=== PATIENT | male | born 1945 | race Caucasian/White ===

== ENCOUNTER 2016-06-01 12:25 | Emergency (ER) | payer MEDICARE, OTHER ==
[2016-06-01] MEDS ORDERED: Sodium Chloride 0.9% 500 ML IV ONE (12:30)
[2016-06-01] MEDS ORDERED: Sodium Chloride 0.9% 10 ML Syringe FLUSH PRN (12:39)
[2016-06-01] MEDS ORDERED: Aspirin 81 MG Tab.Chew PO ONE (12:42)
[2016-06-01] MEDS: Nitroglycerin 0.4 MG Tab.SL SL ONE ×2 (12:46→12:53)
[2016-06-01 12:55] VITALS: BP 180/107
[2016-06-01] MEDS ORDERED: Heparin Sodium 5,000 Units/ML Vial ONE (12:59)
[2016-06-01] MEDS ORDERED: Clopidogrel 75 MG Tab ONE (12:59)
[2016-06-01] MEDS ORDERED: Morphine 4 MG/ML Syringe IVPUSH ONE (12:59)
[2016-06-01] MEDS ORDERED: Morphine 2 MG/ML Syringe ONE (13:06)
[2016-06-01] MEDS ORDERED: Ondansetron 4 MG/2 ML SDV IVPUSH ONE (13:07)
--- NOTE | 2016-06-01 14:03 | ER ---
Date of Service: 06/01/2016 SUBJECTIVE: Riley presents to the emergency room with complaints of substernal chest pain. He has been experiencing this discomfort intermittently for the past several days. He has also been experiencing intermittent diaphoresis with this. The patient states that he has a history of hypertension, but is currently not on any antihypertensive agents. The patient describes the discomfort as substernal in nature with radiation into his neck and back pain and into his arms. He states that he is not experiencing any significant shortness of breath. PAST MEDICAL HISTORY: Hypertension. The patient is currently not treating this. The patient previously had been on lisinopril 20 mg daily. MEDICATIONS: None. ALLERGIES: NKDA. REVIEW OF SYSTEMS: General: Denies any fever, chills, or recent illness. HEENT: Denies any sore throat, rhinorrhea, or congestion. Respiratory: No shortness of breath. Cardiac: Please see history of present illness. Respiratory: No shortness of breath. GI: Did complain of some nausea near the time that he was transferred. Neurologic: The patient states that he did feel somewhat lightheaded. His review of systems is noncontributory. PHYSICAL EXAMINATION: General: A 70-year-old male patient who initially was experiencing mild distress, rated his pain at approximately a 4 on 1-10 scale. Vital Signs: Blood pressure is 213/114, respiratory rate was 18, O2 saturations 97%, temperature is 36.1. Skin: Warm, pink, and dry. HEENT: Head is normocephalic, atraumatic. Mouth, oral mucosa is moist. Lungs: Clear to auscultation. Heart: Regular rate and rhythm. Abdomen: Soft, nontender. There is no hepatosplenomegaly noted. There are no masses noted. Extremities: Without edema. Neurologic: He is alert and oriented, answers all questions appropriately. His speech is fluent. His gait is within normal limits. DIAGNOSTIC DATA: Initial EKG showed inverted T-waves in the anterolateral leads. Posterior EKG was obtained and revealed posterior ST-segment elevation in leads V8, V9 with reciprocal change. LABORATORY DATA: WBCs 6.5, hemoglobin is 16.5, platelets are 297. PT is 10.7, INR is 0.9, sodium is 143, potassium is 4.0, chloride is 108, bicarb is 28, BUN is 12, creatinine is 1.2, creatinine clearance is 61.94. GFR is 60. Glucose is 96, calcium is 8.7, corrected calcium is 8.86, total bilirubin is 0.8, AST is 16, ALT is 21, alkaline phosphatase is 82, troponin is 0.08, total protein is 7.2, albumin is 3.8. EMERGENCY ROOM COURSE: IV access was established x2. He was placed on oxygen per nasal cannula 3 L/minute. He was given aspirin 324 mg p.o. It was recognized early that he was experiencing some cardiac ischemia. He had no significant improvement in his chest discomfort after his 1st nitroglycerin. His blood pressure did decrease to approximately 180/102. He was subsequently given a 2nd nitroglycerin and his blood pressure dropped to the 120s/90s. At that time, he began experiencing significant increase in chest discomfort and intermittent bradycardia with a rate dropping into the 40s. The patient also became extremely diaphoretic and stated that he felt faint. At that time, 2nd EKG was performed and EKG changes were noted, and a STEMI code was called. The patient received a 5000-unit heparin bolus and 300 mg of oral Plavix. He did receive 4 mg of morphine IV and orders were to that he received no further nitrates. He was started on normal saline and was given a 500 mL fluid bolus. He remained stable in my care in the emergency room. ASSESSMENT: Chest pain with transition to posterior wall acute myocardial infarction. PLAN: EMS was summoned and the patient was subsequently transferred. Again, Dr. Savage is the accepting physician. The patient's was present during his care here in the emergency room. All questions were answered. MWK: 06/01/2016 13:29:49 MODL: 06/01/2016 13:57:56 /[id number]
== END 2016-06-01 13:30 | disposition short-term general hospital (02) ==
LOC: VM.ED 12:25
DX: I21.29 ST elevation (STEMI) myocardial infarction involving other sites (principal); I10 Essential (primary) hypertension
CPT/HCPCS: 80053; 84484; 85025; 85610; 93005; 96374; 96375; 99291; A9270; 99285-GF; J1644; J2270; J2405; J7040

== ENCOUNTER 2016-06-04 07:24 | Emergency (ER) | payer MEDICARE, OTHER ==
[2016-06-04] MEDS ORDERED: Sodium Chloride 0.9% 10 ML Syringe FLUSH PRN (07:32)
[2016-06-04 08:32] LABS: CHLORIDE,CL 103 mmol/L (98-107); SODIUM,NA 130 mmol/L (136-145)
[2016-06-04 09:11] VITALS: BP 145/89
--- NOTE | 2016-06-04 10:01 | ER ---
Date of Service: 06/04/2016 SUBJECTIVE: Mr. Keith presents to the emergency room with complaints of shortness of breath and left-sided facial paresthesia. The patient was seen in the emergency room this past 06/01/2016, with a posterior wall myocardial infarction. The patient was subsequently transferred to [facility] in [place] where he underwent PTCA with stent placement. The patient states that immediately after the procedure, he began experiencing left-sided facial paresthesia. He states that this has been intermittent in nature. The patient states that he is also experiencing some mild dyspnea as well since his procedure. He states he is not experiencing any increased peripheral edema. He denies any substernal chest, jaw, arm, or back pain. Denies any palpitations. PAST MEDICAL HISTORY: Posterior MD approximately 3 days ago. MEDICATIONS: 1. Lisinopril 10 mg daily. 2. Plavix 75 mg daily. 3. Aspirin 81 mg daily. 4. Lipitor 40 mg at bedtime. 5. Toprol-XL 25 mg daily. ALLERGIES: NKDA. REVIEW OF SYSTEMS: General: No fever or chills. HEENT: No sore throat, rhinorrhea, or congestion. Please see history of present illness. Respiratory: Does complain of mild dyspnea. Cardiac: Denies any substernal chest pain. No jaw, arm, neck, or back pain. GI: No nausea, vomiting, or diarrhea. No melena, hematochezia, or hematemesis. : Denies any dysuria. Musculoskeletal: No myalgias or arthralgias. Neurologic: Again complains of left-sided facial paresthesia. PHYSICAL EXAMINATION: General: This is a 70-year-old male patient who is in no acute distress. Vital Signs: Initially, blood pressure was 191/97, was rechecked and was found to be 145/89; pulse rate is 70; O2 saturations is 96%; respiratory rate is 13; and temperature is 36.3. Skin: Warm, pink, and dry. HEENT: Head is normocephalic, atraumatic. Eyes, PERRLA. Extraocular movements are intact. Mouth, oral mucosa is moist. No erythema or exudate. No hypopharynx. No facial droop is noted. The patient does complain of some paresthesia again to the area of his left nasolabial fold extending down to the corner of his mouth. There is again no obvious facial droop or other pathology noted on his examination. Neck: Supple without masses. There is no lymphadenopathy. No bruits are noted. Heart: Regular rate and rhythm. Abdomen: Soft, nontender. There is no hepatosplenomegaly or masses noted. Extremities: Without edema. Neurologic: He is alert, oriented, and answers all questions appropriately. His speech is fluent. His gait is within normal limits. He has no pronator drift. His Romberg is negative. Remainder of his physical examination is within normal limits. DIAGNOSTIC DATA: A 15-lead EKG was obtained and showed no acute ST or T-wave abnormality. CT scan of the patient's brain was obtained and did not show any acute pathology. LABORATORY DATA: WBC is 6.0, hemoglobin is 16.5, and platelets are 285. Coags: PT is 11.0, INR is 1.0. Chemistry: Sodium is 130, potassium is 3.6, chloride is 103, bicarb is 27, BUN is 16, creatinine is 1.2, GFR is 60, glucose is 93, calcium is 8.7, and corrected calcium 8.86. Total bilirubin is 1.0. AST is 16, ALT is 21, and alkaline phosphatase is 79. CK is 122, CK-MB is 1.8, and troponin is 0.228. BNP is 57. Total protein is 7.3. EMERGENCY ROOM COURSE: IV access was established. The patient was reassessed, did not show any worsening of the symptoms. In fact, the patient's symptoms did begin to resolve at one point and the paresthesia does appear to be intermittent in nature. He remains stable in my care in the emergency room. ASSESSMENT: Facial numbness, status post heart catheterization. PLAN: The patient will be transferred to [facility] in [place]. I spoke with Dr. Elam, the hospitalist, who accepts the patient in transfer. The patient will be transported by [facility] ground ambulance. He is a code level 1. MWK: 06/04/2016 09:16:36 MODL: 06/04/2016 09:51:55 /[id number]
== END 2016-06-04 09:45 | disposition short-term general hospital (02) ==
LOC: VM.ED 07:24
DX: R20.0 Anesthesia of skin (principal); Z79.899 Other long term (current) drug therapy; Z79.82 Long term (current) use of aspirin
CPT/HCPCS: 36415; 70450; 71020; 80053; 82550; 82553; 83880; 84484; 85025; 85610; 93005; 99284-GF; 99285

== ENCOUNTER 2022-01-16 11:10 | Emergency (ER) | payer MEDICARE, OTHER ==
[2022-01-16] MEDS ORDERED: Sodium Chloride 0.9% 10 ML Syringe FLUSH PRN (11:16)
[2022-01-16] MEDS: fentaNYL 50 MCG/ML SDV IVPUSH ONE ×2 (11:24→12:31)
[2022-01-16 11:39] LABS: PTT,PARTIAL THROMBOPLSTIN TIME 21.2 SEC (20.5-30.9)
[2022-01-16 11:44] LABS: CHLORIDE,CL 110 mmol/L (98-107); SODIUM,NA 145 mmol/L (136-145)
[2022-01-16 11:46] LABS: ANION GAP 9.7 mmol/L (5-15); ESTIMATED GFR 52 mL/min (>=60)
[2022-01-16] MEDS: Iopamidol 612 MG/ML 100 ML Bottle IVPUSH ONE (12:13)
[2022-01-16 13:24] LABS: BARBITURATE SCREEN,URINE NEGATIVE (NEGATIVE)
[2022-01-16 13:25] LABS: BENZODIAZEPINES SCREEN,URINE NEGATIVE (NEGATIVE); BUPRENORPHINE SCREEN,URINE NEGATIVE (NEGATIVE); METHAMPHETAMINE SCREEN, URINE NEGATIVE (NEGATIVE); THC SCREEN,URINE 50 NG/ML NEGATIVE (NEGATIVE)
== END 2022-01-16 13:41 | disposition short-term general hospital (02) ==
LOC: VM.ED 11:10
DX: S32.591A Other specified fracture of right pubis, initial encounter for closed fracture (principal); S32.401A Unspecified fracture of right acetabulum, initial encounter for closed fracture; S32.10XA Unspecified fracture of sacrum, initial encounter for closed fracture; I10 Essential (primary) hypertension; I25.2 Old myocardial infarction; Z79.82 Long term (current) use of aspirin; Z79.02 Long term (current) use of antithrombotics/antiplatelets; Z79.899 Other long term (current) drug therapy; W11.XXXA Fall on and from ladder, initial encounter
CPT/HCPCS: 80053; 80305; 81001; 83735; 84484; 85025; 85610; 85730; 93005; 96374; 96376; 99285; J3010; Q9967; 99284

== ENCOUNTER 2023-08-25 14:24 | Emergency (ER) | payer MEDICARE, OTHER ==
[2023-08-25 14:36] VITALS: BP 130/90; PULSE 80
== END 2023-08-25 14:59 | disposition home or self-care (01) ==
LOC: VM.ED 14:24
DX: J18.9 Pneumonia, unspecified organism (principal); I10 Essential (primary) hypertension; E78.00 Pure hypercholesterolemia, unspecified; I25.2 Old myocardial infarction; I25.10 Atherosclerotic heart disease of native coronary artery without angina pectoris; Z95.5 Presence of coronary angioplasty implant and graft; Z79.82 Long term (current) use of aspirin; Z79.899 Other long term (current) drug therapy
CPT/HCPCS: 71045; 99284